=== PATIENT | female | born 1960 | race Caucasian/White ===

== ENCOUNTER → 2019-04-11 07:37 | Outpatient (CLI) | payer OTHER, SELFPAY ==
--- NOTE | 2019-04-11 07:41 | BI_ITS ---
MAMMOGRAPHY - BILATERAL SCREENING REASON FOR EXAM: Female, 58 years old. Routine annual screening examination. PERTINENT HISTORY: Personal history of breast cancer. Prior right lumpectomy with radiation treatment. Prior right stereotactic breast biopsy. TECHNIQUE: Digital bilateral breast mary alice (3D mammographic acquisition) in the CC and MLO projections. 2-D mediolateral oblique (MLO) and craniocaudad (CC) views of both breasts were obtained. CAD: Full Field Digital Mammography with Computer Added Detection was performed. COMPARISON: Comparison is made with prior abdomen examination dated April 17, 2016. FINDINGS: Breast Composition: The breasts are heterogeneously dense, which may obscure small masses. There are no dominant masses or suspicious calcifications. Stable deformity and scarring in the upper lateral aspect of the right breast with overlying skin thickening secondary to prior lumpectomy. Benign-appearing left axillary lymph node. No other significant abnormalities are identified. There has been no significant change since the prior study. BI/SCREEN MAMM (CAD) W/MARY ALICE BILAT IMPRESSION: Stable bilateral screening mammogram. Yearly follow-up mammogram recommended. (A) ASSESSMENT CATEGORY: BIRADS Category 2: Benign. A letter regarding these results will be sent to the patient by the facility within 30 days. Approximately 10% of breast cancers are not detected by mammography. A normal mammogram should not delay biopsy of a clinically suspicious abnormality. [id number] Electronically Signed: Beck Giron, at 11:06 EST , Service support ,
== END ==
PROVIDERS: Family Provider Physician Assistant; PCP Physician Assistant; Referring Provider Physician Assistant; Visit Provider Physician Assistant
DX: Z12.31 Encounter for screening mammogram for malignant neoplasm of breast (principal)
CPT/HCPCS: 77063; 77067

== ENCOUNTER → 2019-04-18 10:40 | Outpatient (CLI) | payer OTHER, SELFPAY ==
--- NOTE | 2019-04-18 10:43 | US_ITS ---
STUDY: ULTRASOUND BREAST - LEFT REASON FOR EXAM: Female, 58 years old. Axillary lymph nodes seen in the left axillary region. TECHNIQUE: Axial and longitudinal images of the LEFT breast were performed with a high resolution ultrasound transducer. # OF IMAGES: 51 COMPARISON: Comparison is made with prior mammogram dated April 11, 2019. FINDINGS: LEFT Breast: There is a 1.3 cm x 2.3 cm x 1 cm well-defined hypoechoic nodule with a central echogenic hilum with blood flow entering the hilum. This is suggestive of a lymph node. US/Breast Complete Unilateral IMPRESSION: 1.3 cm x 2.3 cm x 1 cm lymph node seen in the left axillary region. ASSESSMENT CATEGORY: BIRADS Category 2: Benign. A letter regarding these results will be sent to the patient by the facility within 30 days. Electronically Signed: Beck Giron, at 13:45 EST , Service support ,
== END ==
PROVIDERS: Family Provider Physician Assistant; PCP Physician Assistant; Referring Provider Physician Assistant; Visit Provider Physician Assistant
DX: N63.20 Unspecified lump in the left breast, unspecified quadrant (principal); Z85.3 Personal history of malignant neoplasm of breast; Z85.850 Personal history of malignant neoplasm of thyroid
CPT/HCPCS: 76641

== ENCOUNTER → 2019-09-29 08:10 | Outpatient (CLI) | payer OTHER, SELFPAY ==
--- NOTE | 2019-09-29 08:44 | CT_ITS ---
STUDY: CT SOFT TISSUE NECK WITH CONTRAST REASON FOR EXAM: Female, 59 years old. Lung nodules, hx thyroid cancer, right breast cancer with lumpectomy and amp; radiation. Denies any chest pain or SOB. RADIATION DOSAGE (If Supplied By Facility): CTDIvol = ( 14.51 ) mGy, DLP = ( 1887.46 ) mGycm TECHNIQUE: The patient was scanned in a multi-detector CT scanner. High resolution transaxial imaging was performed following intravenous administration of IV 75mL Isovue-370. Sagittal and coronal images were reconstructed. Individualized dose optimization techniques were used for this CT. COMPARISON: None. FINDINGS: Normal bilateral parotid glands. Normal bilateral collision repairer spaces. Normal bilateral parapharyngeal spaces. Normal bilateral carotid spaces. Normal bilateral sublingual and submandibular glands and spaces. Normal visualized nasopharynx. Normal retropharyngeal space. Normal perivertebral space. Normal visualized bilateral faucial tonsils. The visualized tongue, tongue base and oropharynx are normal. There are minimally enlarged lymph nodes of the neck, with preservation of normal heavenly architecture, consistent with a reactive lymph hyperplasia. There is no demonstrated solid or cystic mass lesion. There is no abnormal contrast enhancement. Normal epiglottis, bilateral vallecula and hypopharynx. The pre-epiglottic and paraglottic adipose spaces are normal. Normal visualized bilateral piriform sinuses, aryepiglottic folds, vocal cords, and arytenoid-cricoid articulations. Normal subglottic trachea. The thyroid gland is not visualized and most likely has been surgically resected. Normal visualized pulmonary apices. Normal visualized paranasal sinuses. Normal visualized cervical spine. CT/Soft Tissue Neck W/WO Contrast IMPRESSION: Small benign-appearing cervical lymph nodes. Electronically Signed: Beck Giron, at 10:14 EDT , Service support ,
--- NOTE | 2019-09-29 08:44 | CT_ITS ---
STUDY: CT CHEST WITH CONTRAST REASON FOR EXAM: Female, 59 years old. Lung nodules, hx thyroid cancer, right breast cancer with lumpectomy and amp; radiation. Denies any chest pain or SOB. RADIATION DOSAGE (If Supplied By Facility): CTDIvol = ( 14.51 ) mGy, DLP = ( 1887.46 ) mGycm TECHNIQUE: Transaxial imaging was performed following intravenous administration of IV 75mL Isovue-370. Multiplanar coronal and sagittal images were reformatted. Individualized dose optimization techniques were used for this CT. COMPARISON: None. FINDINGS: Minimal degree of scarring at the lung bases. There is no demonstrated pleural abnormality. Normal heart and pericardium. Normal mediastinum. Normal hilar regions. Normal enhanced pulmonary arteries. Normal aorta arch and descending thoracic aorta. There are multi-level degenerative changes of the thoracic spine. Mild dextroscoliosis. Small hiatal hernia. CT/Chest WITH Contrast IMPRESSION: No acute abnormality is seen. Electronically Signed: Beck Giron, at 10:13 EDT , Service support ,
--- NOTE | 2019-09-29 08:53 | US_ITS ---
STUDY: ULTRASOUND BREAST - LEFT REASON FOR EXAM: Female, 59 years old. Left axillary lymph node. TECHNIQUE: Axial and longitudinal images of the LEFT breast were performed with a high resolution ultrasound transducer. # OF IMAGES: 34 COMPARISON: Comparison is made with prior ultrasound the left breast dated April 18, 2019. FINDINGS: LEFT Breast: There is a 1.7 cm x 0.7 cm x 0.7 cm well-defined hypoechoic nodule with central echogenic hilum with blood flow. This is in keeping with a small benign-appearing lymph node. US/Breast Limited Unilateral IMPRESSION: Slight decrease in size of the left axillary lymph node. ASSESSMENT CATEGORY: BIRADS Category 2: Benign. A letter regarding these results will be sent to the patient by the facility within 30 days. Electronically Signed: Beck Giron, at 8:17 EDT , Service support ,
[2019-09-29 08:56] LABS: CREATININE FINGERSTICK < 0.6 mg/dL (0.55-1.02); EGFR FINGERSTICK > 60.0000 mL/min (>60)
== END ==
PROVIDERS: PCP Physician Assistant; Referring Provider Physician Assistant; Visit Provider Physician Assistant
DX: R91.8 Other nonspecific abnormal finding of lung field (principal); Z85.850 Personal history of malignant neoplasm of thyroid; N64.4 Mastodynia
CPT/HCPCS: 70492; 71260; 76642; Q9967

== ENCOUNTER → 2019-11-15 12:52 | Outpatient (CLI) | payer OTHER, SELFPAY ==
[2019-11-15 12:37] VITALS: BMI 27.6
--- NOTE | 2019-11-15 12:53 | RAD_ITS ---
STUDY: X-RAY - LUMBAR SPINE REASON FOR EXAM: Female, 59 years old. RIGHT LEG PAIN, LBP TECHNIQUE: 4 view(s) of the lumbar spine were obtained. This is an AP lateral and 2 views flexion-extension COMPARISON: None FINDINGS: Normal lumbar lordosis. There is no substantial scoliosis. With flexion and extension there is no apparent change in the alignment. At L3-L4 there is disc space narrowing posterior spondylosis mild neural foraminal narrowing suggested. Overall there is mild multilevel spondylosis. Normal vertebral bodies and endplates. Normal disc space heights. The soft tissue structures are unremarkable. RAD/L/S Spine Min 4 Views IMPRESSION: Degenerative change L3-L4 no visualized instability on the flexion and extension views provided. Electronically Signed: Roberta Kearns MD at 4:30 EDT Tel , Service support ,
== END ==
PROVIDERS: PCP Physician Assistant; Referring Provider Orthopaedic Surgery; Visit Provider Orthopaedic Surgery
DX: M54.5 Low back pain (principal)
CPT/HCPCS: 72110

== ENCOUNTER 2022-04-28 09:44 | Day surgery (SDC) | payer OTHER, SELFPAY ==
[2022-04-25 06:54] VITALS: BMI 30.2
--- NOTE | 2022-04-28 11:20 | CL.D_ITS ---
Patient Name: RONAK PIRES CARO Study Date: 04/28/2022 Performing: Brian Rahman MD Ht: 68 inches 172.72 cm : 1960 Wt: 198.99 lbs 90.26 kg Age: 61 Gender: female BSA: 2.04 PROCEDURE(S) PERFORMED DC01-(68048)LHC/COR/LV CLINICAL PROFILE AND INDICATIONS Indications: Suspected CAD Heart Failure: None Stress/Imaging Date: 01/23/22Stress Test with SPECT MPI: Indeterminant CAD Presentations: Symptom unlikely to be ischemic. CONCLUSIONS Normal coronary arteries Normal LV size, wall motion,and systolic function RECOMMENDATIONS Medical therapy DESCRIPTION OF PROCEDURE The patient arrived to the procedure lab. The risks and benefits of the procedure as well as a full description of our services here and current unavailability of surgical backup were fully explained to the patient and/or their significant other prior to the catheterization. The Timeout was completed, verifying the correct patient and procedure. The patient's procedural site was prepped and draped in the usual fashion. Local anesthetic was given subcutaneously to right radial region with Lidocaine 2% by Dr Butler. Using a modified Seldinger technique, arterial access was obtained via the right radial artery, a 6Fr sheath was inserted. Dr Butler Left Coronary Artery selective angiography was performed in multiple views using a 5 Fr. 4.0 Aurora catheter. Right Coronary Artery selective angiography was then performed in multiple views using a 5 Fr. 4.0 Aurora catheter.The arterial sheath was pulled and a TR Band was applied for hemostasis, 11cc of air CORONARY ANGIOGRAPHY DOMINANCE: Right Dominant LEFT HEART ASSESSMENT Left Ventricular Ejection Fraction: by LV Gram 60 % Normal LV wall motion Normal Left Ventricular systolic function LEFT MAIN: Angiographically normal LEFT ANTERIOR DESCENDING ARTERY: No significant disease noted CIRCUMFLEX ARTERY: Mild luminal irregularities RIGHT CORONARY ARTERY: Mild luminal irregularities COMPLICATIONS No Complications PROCEDURE MEDICATIONS Fentanyl 50 mcg IV Versed 1 mg IV Versed 1 mg IV Oxygen: 2 L/min via nasal cannula Heparin given IA 04/28/2022 11:02:08 Verapamil 2.5mg, Ntg 100mcgs, 3000 units of Heparin given IA 04/28/2022 11:02:08 SUMMARY OF HEMODYNAMIC DATA Time AIR REST ECG 10:05:31 Art 146/74 (102) 11:05:31 AO 152/78 (111) SA 11:06:30 LV 164/2, 11 11:12:01 LV 153/2, 9 11:12:10 LV 161/5, 13 11:13:07 LVp 169/4, 15 11:13:12 AOp 166/80 (114) 11:13:19 Signed By Brian Rahman MD On 04/28/2022 11:19:14 Brian Rahman MD
== END 2022-04-28 14:09 | disposition home or self-care (01) ==
LOC: CLSP 09:45
PROVIDERS: PCP Internal Medicine; Referring Provider Internal Medicine Cardiovascular Disease; Visit Provider Internal Medicine Cardiovascular Disease
DX: I25.10 Atherosclerotic heart disease of native coronary artery without angina pectoris (principal); I10 Essential (primary) hypertension; J45.909 Unspecified asthma, uncomplicated; K21.9 Gastro-esophageal reflux disease without esophagitis; E03.9 Hypothyroidism, unspecified; E55.9 Vitamin D deficiency, unspecified; Z79.899 Other long term (current) drug therapy; Z86.16 Personal history of COVID-19
CPT/HCPCS: 93458; 99152; 99153; J7040; Q9967; C1769; C1894